=== PATIENT | female | born 1990 | race Two or more races ===

== ENCOUNTER 2017-05-28 15:01 | Emergency (ER) | payer SELFPAY ==
[2017-05-28 15:10] VITALS: BP 146/80; PULSE 77; RESP 22; TEMP 98.6; O2SAT 99
--- NOTE | 2017-05-28 16:31 | C.PDOC ---
History Of Present Illness Patient was not in the room when I went to evaluate. Patient left without being seen Time Seen by Provider: 05/28/17 15:39 Chief Complaint (Nursing): Chest Pain Past Medical History Vital Signs: Last Vital Signs Temp 98.6 F 05/28/17 15:07 Pulse 77 05/28/17 15:07 Resp 22 05/28/17 15:07 BP 146/80 05/28/17 15:07 Pulse Ox 99 05/28/17 16:46 Family History: States: Unknown Family Hx - Social History Hx Alcohol Use: Yes Hx Substance Use: No - Immunization History Hx Tetanus Toxoid Vaccination: No Hx Influenza Vaccination: No Hx Pneumococcal Vaccination: No ED Course And Treatment ECG: Interpreted By Me, Viewed By Me ECG Rhythm: Sinus Rhythm ECG Interpretation: No Acute Changes Interpretation Of ECG: NS with 65 bpm with normal axis, no ischemic changes Rate From EC O2 Sat by Pulse Oximetry: 99 (room air) Pulse Ox Interpretation: Normal Disposition - Disposition Disposition: LEFT W/O BEING SEEN - ER ONLY Disposition Time: 16:40 Condition: UNKNOWN - Clinical Impression Clinical Impression: Patient left without being seen
--- NOTE | 2017-05-30 14:54 | CARD ---
APPROVED REPORT EKG Measurement Heart [id number] FL [id number] [id number] <Conclusion> Normal sinus rhythm with sinus arrhythmia Normal ECG
== END 2017-05-28 16:56 | disposition left against medical advice (07) ==
LOC: C.ER 15:01
DX: Z02.89 Encounter for other administrative examinations (principal); R07.9 Chest pain, unspecified
CPT/HCPCS: 93005; LWBS0